=== PATIENT | female | born 1985 | race Two or more races ===

== ENCOUNTER 2023-08-20 08:01 | Emergency (ER) | payer MEDICAID, OTHER ==
[~2023-08-20] VITALS: Ht 167.6 cm; Wt 80.9 kg
[2023-08-20 08:27] VITALS: BP 149/71; PULSE 111; TEMP 99
[2023-08-20] MEDS: SODIUM CHLORIDE 0.9% 1,000 ML IV ONE (09:16)
[2023-08-20] MEDS: predniSONE 20 MG TAB PO ONE (09:19)
[2023-08-20] MEDS: ONDANSETRON ODT 4 MG TAB PO ONE (09:19)
[2023-08-20] MEDS ORDERED: DEXT60TA4 PO (09:39)
[2023-08-20] MEDS ORDERED: ALBUAER3 IN (09:39)
[2023-08-20] MEDS ORDERED: FEXO-42 PO (09:39)
[2023-08-20] MEDS ORDERED: ZOFR4T PO (09:39)
[2023-08-20] MEDS: ALBUTEROL SULF 2.5 MG/0.5ML(0.5%) NEB SOLN NEB ONE (10:04)
[2023-08-20] MEDS: IPRATROPIUM BROM 0.5 MG/2.5ML INH SOL NEB ONE (10:04)
[2023-08-20 10:08] VITALS: RESP 14; O2SAT 98
== END 2023-08-20 10:17 | disposition home or self-care (01) ==
LOC: ER 08:01
DX: K52.9 Noninfective gastroenteritis and colitis, unspecified (principal); J20.9 Acute bronchitis, unspecified
CPT/HCPCS: 71046; 94640; 96360; 99283; J7030; J7512; J7644; Q0162